=== PATIENT | male | born 1975 | race Caucasian/White ===

== ENCOUNTER 2017-09-18 03:48 | Inpatient (IN) ==
[2017-09-18] MEDS ORDERED: SODIUM CHLORIDE 0.9% 1,000 ML IV STA (04:26)
[2017-09-18] MEDS: MORPHINE 4 MG/1 ML VIAL IV PRN ×3 (05:08→07:40)
[2017-09-18 05:10] LABS: Basophils % 0.3 % (0.0-0.8); Eosinophils # 0.1 10*3/uL (0.0-0.87); Eosinophils % 0.4 % (0.00-10.9); Hematocrit 46.5 VOL% (42.0-52.0); Hemoglobin 16.6 GM/DL (14.0-18.0); Immature Granulocytes % 0.6 %; Immature Granulocytes Absolute 0.08 #; Lymphocytes # 1.8 10*3/uL (1.4-4.0); Lymphocytes % 13.5 % (21.2-54.2); Mean Corpuscular HGB Conc 35.7 GM/DL (32-36); Mean Corpuscular Hemoglobin 31 PG (27-34); Mean Corpuscular Volume 87.6 FL (87-102); Mean Platelet Volume 9.3 FL (9.6-12.0); Monocytes # 0.8 10*3/uL (0.11-0.8); Monocytes % 6.1 % (1.7-12.7); Neutrophils # 10.8 10*3/uL (1.4-7.4); Neutrophils % 79.1 % (38.7-73.9); Platelet Count 233 T/CUMM (130-400); Red Blood Count 5.31 MC/CUMM (3.8-5.5); Red Cell Distribution Width 12.3 % (9.3-17.3); White Blood Count 13.6 T/CUMM (4-12)
[2017-09-18 05:30] LABS: Alanine Aminotransferase 45 U/L (16-61); Albumin 4.3 G/DL (3.4-5.0); Alkaline Phosphatase 131 U/L (45-117); Aspartate Amino Transferase 18 U/L (0-37); Blood Urea Nitrogen 14 MG/DL (7-18); Calcium 8.9 MG/DL (8.5-10.1); Glucose 107 MG/DL (74-106); Osmolality,Calculated 273.8 MOS/KG (273-304); Potassium 3.9 MMOL/L (3.5-5.1); Sodium 137 MMOL/L (136-145); Total Protein 7.7 G/DL (6.4-8.3)
[2017-09-18 05:32] LABS: Lactic Acid 2.9 MMOL/L (0.4-2.0)
[2017-09-18] MEDS ORDERED: AMPICILLIN/SULBACTAM 3,000 MG in SODIUM CHLORIDE 0.9% 100 ML IV STA (06:48)
[2017-09-18 06:59] LABS: Apearance,Urine CLEAR (Clear); Bilirubin,Urine Negative (Negative); Blood, Urine Small mg/dL (Negative); Glucose,Urine (UA) Negative (Negative); Ketones,Urine Negative (Negative); Mucus,Urine Occasional /LPF (Occasional); Nitrite,Urine Negative (Negative); Protein,Urine Negative; RBC,Urine 3 /HPF (0-4); Squamous Epithelial Cell,Urine Occasional /HPF (0-10); Urine Color Straw (Yellow); Urine Specific Gravity 1.008 (1.001-1.035); Urine Urobilinogen < 2.0 EU/DL (0.2-1.0)
[2017-09-18] MEDS ORDERED: MORPHINE 4 MG/1 ML VIAL ONE (07:06)
[2017-09-18] MEDS: SODIUM CHLORIDE 0.9% 1,000 ML IV SCH ×5 (07:08→23:52)
[2017-09-18] MEDS ORDERED: TISSUE ADHESIVE 1 EACH APPLICATOR TOP ONE (09:00)
[2017-09-18] MEDS ORDERED: BUPIVACAINE MPF 0.25% 30 ML VIAL ONE (09:00)
[2017-09-18] MEDS ORDERED: LIDOCAINE 1%/EPI INJ 20 ML VIAL ONE (09:00)
[2017-09-18] MEDS ORDERED: ONDANSETRON 4 MG/2 ML VIAL IV PRN (10:30)
[2017-09-18] MEDS ORDERED: KETOROLAC 15 MG/1 ML VIAL IV PRN (10:30)
[2017-09-18] MEDS ORDERED: ACETAMINOPHEN 325 MG TABLET PO PRN (10:30)
[2017-09-18] MEDS: cefOXitin 2,000 MG in SYRINGE 1 EACH IV SCH ×3 (12:33→23:10)
[2017-09-18] MEDS ORDERED: MIDAZOLAM 2 MG/2 ML VIAL ONE (15:03)
[2017-09-18] MEDS ORDERED: SEVOFLURANE 1 UNIT/15 MINUTE INH ONE (15:03)
[2017-09-18] MEDS ORDERED: PROPOFOL 200 MG/20 ML VIAL IV ONE (15:03)
[2017-09-18] MEDS ORDERED: LACTATED RINGERS 1,000 ML IV ONE (15:04)
[2017-09-18] MEDS ORDERED: DEXAMETHASONE 10 MG/1 ML VIAL ONE (15:04)
[2017-09-18] MEDS ORDERED: KETOROLAC 30 MG/1 ML VIAL ONE (15:04)
[2017-09-18] MEDS ORDERED: ACETAMINOPHEN 1,000 MG/100 ML VIAL IV ONE (15:04)
[2017-09-18] MEDS ORDERED: fentaNYL 100 MCG/2 ML VIAL ONE (15:04)
[2017-09-18] MEDS ORDERED: ROCURONIUM 100 MG/10 ML VIAL IV ONE (15:04)
[2017-09-18] MEDS ORDERED: ONDANSETRON 4 MG/2 ML VIAL ONE (15:06)
[2017-09-19] MEDS: SODIUM CHLORIDE 0.9% 1,000 ML IV SCH (02:06)
[2017-09-19] MEDS: cefOXitin 2,000 MG in SYRINGE 1 EACH IV SCH ×2 (05:25→12:00)
[2017-09-19] MEDS ORDERED: PANTOPRAZOLE 40 MG TABLET PO SCH (09:00)
[2017-09-19 12:13] VITALS: BP 112/75
== END 2017-09-19 11:50 | disposition home or self-care (01) | DRG 343 ==
LOC: N.ED 03:48 → N.3E 08:48 → N.EDINP 10:30 → N.3E 11:01
PROVIDERS: ADMIT Surgery; ATTEND Surgery